=== PATIENT | female | born 1995 | race Caucasian/White ===

== ENCOUNTER → 2025-04-29 | Outpatient (CLI) | payer OTHER, SELFPAY ==
--- NOTE | 2025-04-29 10:05 | RAD_ITS ---
PROCEDURE: PELVIS 1 OR 2 VIEWS 04/29/2025 REASON FOR EXAM: PAIN TECHNIQUE: PELVIS 1 OR 2 VIEWS COMPARISON: None. RAD/Pelvis 1 or 2 Views IMPRESSION: No significant hip joint narrowing is seen. No evidence of femoral head osteonecrosis. Probable mild degenerative changes of the visualized lower lumbar spine. Sacroiliac joints appear symmetric and within the normal range; no evidence of erosive process or joint narrowing. Reading Location: [place] [id number]
[2025-04-29 12:20] LABS: Color, Urine Yellow (Yellow); Glucose, Dipstick Normal (Normal); Ketone-Dipstick Negative (Negative); Leukocyte Esterase-Dipstick 100 /ul (Negative); Nitrite-Dipstick Negative (Negative); Occult Blood-Urine 150 /ul (Negative); Protein-Dipstick 100 mg/dl (Negative); Specific Gravity, Urine 1.020 (1.002-1.030); Urine Bilirubin Dipstick Negative (Negative)
[2025-04-29 12:39] LABS: Hematocrit 43.9 % (37-47); Hemoglobin 14.7 g/dL (12.0-15.0); Immature Granulocytes Count 0.020 X10^3/uL (0.0-0.0); Mean Corp Hgb Conc 33.5 g/dL (32-36); Mean Corpuscular Volume 89.2 fL (81-99); Mean Platelet Vol. 12.2 fl (6.2-12.0); NRBC Flagged by Analyzer 0 % (0-5); Platelet Count 180 K/mm3 (150-450); RBC Distribution Width CV 12.1 % (11.6-14.6); RBC Distribution Width SD 39.6 fl (35.1-43.9); Red Blood Count 4.92 M/mm3 (4.2-5.4); White Blood Count 6.2 K/mm3 (4.4-11.0)
[2025-04-29 12:47] LABS: Creatinine, Urine (random) 152.00 mg/dL (28.00-217.00); Protein, Urine (Random) 153.0 mg/dL (0.0-12.0); Protein:Creat Ratio 1007 mg/g CRE (0-200)
[2025-04-29 13:10] LABS: AST(SGOT) 29 U/L (<=31); Alanine Aminotransfer ALT/SGPT 45 U/L (<=34); Albumin, Serum 4.2 g/dL (3.5-5.0); Alkaline Phosphatase 46 U/L (35-104); Anion Gap 14 (5-15); BUN 13 mg/dL (4-19); BUN/Creat Ratio 18.6 RATIO (10-20); Calcium,Total 9.2 mg/dL (7.6-11.0); Carbon Dioxide 20.5 mmol/L (21.0-32.0); Chloride 105 mmol/L (98-108); Globulin 2.9 g/dL (2.2-4.2); Glucose 195 mg/dL (70-99); Potassium 3.8 mmol/L (3.3-5.1)
[2025-04-29 13:18] LABS: CRP < 3.00 mg/L (0.0-3.0)
== END | disposition home or self-care (01) ==
PROVIDERS: PCP Family Medicine; Referring Provider Internal Medicine Rheumatology; Visit Provider Internal Medicine Rheumatology
DX: M31.0 Hypersensitivity angiitis (principal); E11.9 Type 2 diabetes mellitus without complications; K76.0 Fatty (change of) liver, not elsewhere classified
CPT/HCPCS: 36415; 72170; 80053; 81002; 81374; 82570; 84156; 85025; 85652; 86140; 86200